=== PATIENT | female | born 1980 | race Caucasian/White ===

== ENCOUNTER → 2018-10-29 | Outpatient (REF) | payer OTHER | LOC: M LAB REF 12:58 | PROVIDERS: ATTEND Nurse Practitioner Women's Health | DX: Z34.83 Encounter for supervision of other normal pregnancy, third trimester (principal); Z3A.00 Weeks of gestation of pregnancy not specified ==

== ENCOUNTER → 2018-12-30 | Outpatient (REF) | payer OTHER ==
[2018-12-30 13:28] LABS: FREE T4 1.02 NG/DL (0.76-1.46); THYROID STIMULATING HORMONE 0.509 uIU/ML (0.358-3.740)
== END ==
LOC: M LAB REF 12:27
PROVIDERS: ATTEND Nurse Practitioner Women's Health
DX: E03.9 Hypothyroidism, unspecified (principal)

== ENCOUNTER → 2020-05-28 | Outpatient (CLI) | payer OTHER ==
--- NOTE | 2020-05-28 16:18 | REP ---
INDICATION: N9.1 EXCESSIVE AND FREQUENT MENSTRUATION. COMPARISON: None. TECHNIQUE: Transabdominal, endovaginal and Doppler ultrasound assessment of the pelvis. FINDINGS: The uterus is retroverted and slightly enlarged measuring 9.6 x 5.0 x 9.7 cm. The endometrium is not thickened for patient age measuring up to 9.7 mm. Right ovary: The right ovary is normal size measuring 2.9 x 2.0 x 3.0 cm. There is a complex right ovarian cyst measuring 2.1 x 2.2 x 1.8 cm. There is vascular flow in the right ovary with the Doppler resistive index in the parenchymal arteries measuring the 0.39. Left ovary: The left ovary is normal size measuring 3.7 x 1.9 x 3.2 cm. There are 3 complex cyst in the left ovary measurin.5 x 1.8 x 1.4 cm. 2.5 x 2.0 x 1.4 cm. 1.8 x 1.3 x 1.5 cm. There is vascular flow in the left ovary with color Doppler assessment. No resistive index is performed. There is a small volume of free fluid in the pelvis. IMPRESSION: There is a single complex cyst in the right ovary. There are 3 complex cysts in the left ovary. There is vascular flow in both ovaries. There is a small volume of free fluid in the pelvis. The uterus is retroverted. <Electronically signed by Orlin Gonzalez > 05/28/20 [id number]
== END ==
LOC: M WHC 12:57
PROVIDERS: ATTEND Obstetrics & Gynecology
DX: N92.1 Excessive and frequent menstruation with irregular cycle (principal); N83.201 Unspecified ovarian cyst, right side; N83.202 Unspecified ovarian cyst, left side

== ENCOUNTER → 2020-08-01 | Outpatient (REF) | payer OTHER ==
[2020-08-01 16:12] LABS: HEMATOCRIT 42.4 % (36.0-47.0); HEMOGLOBIN 14.4 g/dl (12.0-15.5); MEAN CORPUSCULAR HEMOGLOBIN 32.4 pg (27.0-33.0); MEAN CORPUSCULAR VOLUME 95.3 fl (80.0-96.0); PLATELET COUNT, AUTOMATED 209 10^3/uL (150-450); RED BLOOD COUNT 4.45 10^6/uL (4.00-5.40)
[2020-08-01 16:45] LABS: FREE T4 1.05 NG/DL (0.76-1.46)
[2020-08-01 17:26] LABS: HEPATITIS C VIRUS ABY INDEX 0.1 INDEX (<0.8); HIV 1&2 SCREEN CENTAUR NEGATIVE (NEGATIVE)
[2020-08-01 17:48] LABS: CHLAMYDIA DNA AMPLIFICATION NEGATIVE (NEGATIVE); GC DNA AMPLIFICATION NEGATIVE (NEGATIVE)
== END ==
LOC: M PLALAB 12:29
PROVIDERS: ATTEND Advanced Practice Midwife
DX: Z3A.11 11 weeks gestation of pregnancy (principal)

== ENCOUNTER → 2020-09-18 | Outpatient (CLI) | payer OTHER ==
--- NOTE | 2020-09-18 11:54 | REP ---
INDICATION: ANATOMY. COMPARISON: None. TECHNIQUE: Multiple sonographic images of the gravid uterus FINDINGS: There is a single intrauterine gestation. position is variable. The placenta is anterior with grade 0 maturity. There is no previa. The umbilical cord inserts centrally onto the placenta. There is a three-vessel cord. The cord insertion is unremarkable. Cervix measures 4.1 cm. heart rate is 140 beats per minute. Subjectively the amniotic fluid volume is normal. Gestational age by today's study is 19 weeks 3 days with an VAISHALI of 02/09/2021. The LMP is unknown. weight is 310 g which corresponds to 0 lb, 10 oz. This is greater than the 97th percentile for 18 weeks 2 days. The following anatomic structures are identified and are unremarkable: Cranium, cavum septum pellucidum, falx, intracranial ventricles, choroid plexus, cerebellum, cisterna magna, nuchal fold, facial profile, upper lip, cardiac rhythm, four-chamber heart, cardiac right left ventricular outflow tracts, diaphragm, stomach, abdominal wall, right and left kidneys, bladder, spine, right and left upper extremities, right left lower extremities and 3 vessel cord. IMPRESSION: No anomalies are identified. <Electronically signed by Orlin Gonzalez > 09/18/20 [id number]
== END ==
LOC: M WHC 10:25
PROVIDERS: ATTEND Advanced Practice Midwife
DX: O09.522 Supervision of elderly multigravida, second trimester (principal); Z36.89 Encounter for other specified antenatal screening; Z3A.19 19 weeks gestation of pregnancy

== ENCOUNTER → 2020-10-23 | Outpatient (REF) | payer OTHER | LOC: M PLALAB 11:47 | PROVIDERS: ATTEND Obstetrics & Gynecology | DX: Z36.89 Encounter for other specified antenatal screening (principal); Z3A.23 23 weeks gestation of pregnancy; Z53.9 Procedure and treatment not carried out, unspecified reason ==

== ENCOUNTER → 2020-11-19 | Outpatient (REF) | payer OTHER ==
[2020-11-19 10:10] LABS: HEMATOCRIT 39.9 % (36.0-47.0); HEMOGLOBIN 13.3 g/dl (12.0-15.5); MEAN CORPUSCULAR HEMOGLOBIN 33.7 pg (27.0-33.0); MEAN CORPUSCULAR HGB CONC 33.3 g/dl (32.0-36.5); PLATELET COUNT, AUTOMATED 142 10^3/uL (150-450); RED BLOOD COUNT 3.95 10^6/uL (4.00-5.40); WHITE BLOOD COUNT 6.3 10^3/uL (4.0-10.0)
[2020-11-19 10:50] LABS: FREE T4 0.97 NG/DL (0.76-1.46); THYROID STIMULATING HORMONE 2.03 uIU/ML (0.358-3.740)
== END ==
LOC: M PLALAB 08:13
PROVIDERS: ATTEND Obstetrics & Gynecology
DX: Z36.89 Encounter for other specified antenatal screening (principal); Z3A.23 23 weeks gestation of pregnancy

== ENCOUNTER → 2021-01-24 | Outpatient (REF) | payer OTHER | LOC: M SFHCWAGY 10:12 | PROVIDERS: ATTEND Obstetrics & Gynecology | DX: A60.04 Herpesviral vulvovaginitis (principal) ==

== ENCOUNTER 2021-02-10 17:40 | Inpatient (IN) | payer OTHER ==
[~2021-02-10] VITALS: Ht 165.1 cm; Wt 78.2 kg
[2021-02-10] MEDS ORDERED: LEVO50TA5 (18:15)
[2021-02-10] MEDS ORDERED: VALA500T5 (18:15)
[2021-02-10] MEDS ORDERED: LEVO75TA4 (18:15)
[2021-02-10] MEDS ORDERED: PNV-TAB2 PO (18:16)
[2021-02-10] MEDS ORDERED: HOME MED LIST COMPLETE! XX SCH (18:20)
[2021-02-10] MEDS ORDERED: OXYTOCIN DRIP 30 UNITS in IV 1 EA IV SCH (20:15)
[2021-02-10] MEDS ORDERED: LR 1,000 ML IV SCH (20:15)
--- NOTE | 2021-02-10 20:32 | HPEPDOC ---
Obstetrical History & Physical General Date of Admission Feb 10, 2021 at 17:40 History of Present Illness 41yo at 39w0d presents for induction of labor for AMA. Otherwise uncomplica lana course Chief Complaint: Induction of labor Information Provided By: Patient Age: 7 Livin Care Care: Good Care Dating Final EDC: Feb 17, 2021 Final EDC by: LMP EGA at Admission: 39 Past Medical History Past Obstetrical History #1: Date of Delivery: October 14, 2011 Gestation: 39 Type of Delivery: Spontaneous Vaginal Del. Sex of Infant: Male Complications: No Past Obstetrical History #2: Date of Delivery: Sep 18, 2015 Gestation: 40 Type of Delivery: Spontaneous Vaginal Del. Sex of : Female Past Obstetrical History #3: Date of Delivery: Nov 17, 2018 Gestation: 39 Type of Delivery: Spontaneous Vaginal Del. Sex of Infant: Female LAYER OUT History: Ectopic , Abnormal Pap, Human papillomavirus(HPV), Herpes simplex virus(HSV) Past Medical History Medical History Fabiola's thyroiditis Surgical History: Appendectomy, Dilatation and Curettage Family History Significant Family History: No pertinent family hx Social History Marital Status: Family situation: Spouse/partner home Psychosocial History: No pertinent psych hx * Smoker: non-smoker Alcohol: Denies Drugs: denies Allergies Coded Allergies: No Known Allergies (Unverified , 02/10/21) Medications Miscellaneous Medications Levothyroxine Sodium (Levothyroxine Sodium) 50 Mcg Tablet Levothyroxine Sodium (Levothyroxine Sodium) 75 Mcg Tablet ,Calc.40/Iron/Folate 1 (Pnv-Select Tablet) 1 Each Tablet, 1 TAB PO Valacyclovir HCl (Valacyclovir) 500 Mg Tablet Physical Examination Physical Examination GENERAL: Alert and oriented times three. BREAST: . ABDOMEN: Gravid and non-tender to touch. FETUS: Is vertex (VTX) by sterile vaginal examination (SVE), fetus is vertex (VTX) by Fabian. HEART RATE: Regular rate and rhythm. LUNGS: Clear to auscultation (CTA). Laboratory Data [facility] Laboratory Tests 2 02/10/21 18:01: Serology Scanned Report Hepatitis B Testing Pertinent Laboratoy Data Blood Type: O+ RBC Antibody Screen: Negative HIV: Negative Hepatitis B: Negative Hepatitis C: Negative Rapid Plasma Reagin: Nonreactive Rubella: Immune Chlamydia/Gonorrhea: Negative Group B Streptococcus: Negative Glucose Tolerance Test: 87 Anatomy Ultrasound Placenta Location: Anterior Normal Anatomy: Yes Placenta Previa: No Vaginal Examination Dilation: 3 cm Effacement: 50% Station: -2 Cervical Consistency: Medium Cervical Position: Middle Presentation: Cephalic presentation Assessment Variability: Moderate Accelerations: Positive Decelerations: None Tocometer Contractions: No Assessment/Plan Assessment 41-year-old at 39 weeks for induction labor for advanced maternal age Reassuring status Plan Admit and orient. 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 Diet: Regular. Group B Streptococcus (GBS) [negative]. Labs and intravenous (IV) per unit protocol. Counseled on Pitocin and induction of labor (IOL). Anticipate [normal spontaneous delivery ()]. C-S as appropriate. Patient's been thoroughly counseled regards induction labor. Discussed medications also procedures before. Plan to proceed with Pitocin augmentation. RALEIGH GLOVER MD. Feb 10, 2021 20:32
[2021-02-11] VITALS (27 sets, daily range): BP systolic 93–134; BP diastolic 51–83
[2021-02-11 00:08] LABS: HEMATOCRIT 38.7 % (36.0-47.0); HEMOGLOBIN 13.3 g/dl (12.0-15.5); MEAN CORPUSCULAR HEMOGLOBIN 34.2 pg (27.0-33.0); MEAN CORPUSCULAR HGB CONC 34.4 g/dl (32.0-36.5); MEAN CORPUSCULAR VOLUME 99.5 fl (80.0-96.0); PLATELET COUNT, AUTOMATED 134 10^3/uL (150-450); RED BLOOD COUNT 3.89 10^6/uL (4.00-5.40); WHITE BLOOD COUNT 5.8 10^3/uL (4.0-10.0)
[2021-02-11] MEDS ORDERED: FENTANYL 2MCG/ML ROPIVACAINE 0.2% IN 0.9% NACL 100ML IVBAG As Ordered ONE (02:41)
[2021-02-11] MEDS ORDERED: REFRIGERATOR IV KEYS XX PRN (03:50)
[2021-02-11] MEDS ORDERED: FENTANYL/ROPIVACAINE/NACL BAG 100 ML EPIDURAL SCH (03:50)
[2021-02-11] MEDS ORDERED: ePHEDrine SULFATE 25 MG/5 ML(5MG/ML) SYRINGE IV PRN (03:50)
[2021-02-11] MEDS ORDERED: NALOXONE INJ 0.4MG/1ML VIAL (J2310 PER 1MG) IV PRN (03:50)
[2021-02-11] MEDS ORDERED: EPIDURAL/PCA KEYS XX PRN (03:50)
[2021-02-11] MEDS ORDERED: ONDANSETRON 4MG/2ML VIAL IV PRN (03:50)
[2021-02-11] MEDS ORDERED: diphenhydrAMINE 50MG/ML VIAL (J1200) IV PRN (03:50)
[2021-02-11] MEDS ORDERED: LACTATED RINGER'S 1000 ML IV PRN (03:50)
[2021-02-11] MEDS ORDERED: EPIDURAL COMMENT XX SCH (03:50)
--- NOTE | 2021-02-11 04:02 | IPNPDOC ---
Text Note Date of Service The patient was seen on 02/11/21. NOTE AROM clear. cx /-2. requesting epidural VS,Juan, I+O VS, Juan, I+O Laboratory Tests 02/10/21 18:32 RALEIGH GLOVER MD. Feb 11, 2021 04:02
[2021-02-11] MEDS ORDERED: DOCUSATE SODIUM 100MG CAPSULE PO PRN (06:20)
[2021-02-11] MEDS ORDERED: ACETAMINOPHEN TAB 650MG DOSE (2X325MG) PO PRN (06:20)
[2021-02-11] MEDS ORDERED: IBUPROFEN 600MG TAB PO PRN (06:20)
[2021-02-11] MEDS ORDERED: DIBUCAINE 1% OINTMENT 30GM TOP PRN (06:20)
[2021-02-11] MEDS ORDERED: IBUPROFEN 800 MG TAB PO PRN (06:20)
[2021-02-11] MEDS ORDERED: RHOGAM 300 MCG (1500 IU) INJ (J2790) IM SCH (06:20)
[2021-02-11] MEDS ORDERED: MOM 30ML SUSPENSION UDC PO PRN (06:20)
[2021-02-11] MEDS ORDERED: MEASLES,MUMPS,RUBELLA VACCINE INJ (MMR-II) (90707) SC SCH (06:20)
[2021-02-11] MEDS ORDERED: ACETAMINOPHEN 500 MG TAB PO PRN (06:20)
[2021-02-11] MEDS ORDERED: METHYLERGONOVINE MALEATE 0.2 MG TAB PO PRN (06:20)
[2021-02-11] MEDS ORDERED: OXYTOCIN DRIP 30 UNITS in IV 1 EA IV SCH (06:20)
--- NOTE | 2021-02-11 06:50 | DNPDOC ---
[facility] Delivery Note Delivery Note DATE OF DELIVERY: February 11 2021 TIME OF : 0446 GENDER: Female APGARS: 9 and 9. WEIGHT: 3930 grams or 8 pounds 11ounces. LACERATIONS: 1MLL ANESTHESIA: epidural ESTIMATED BLOOD LOSS: 300ml COUNTS: 5 laparotomy sponges accounted for prior to after delivery. 1 sharps removed from delivery field. DELIVERY NOTE: On 05/11/2020 at 1240, Mrs. Byrd a 41-year-old 6 now para 4, had a spontaneous vaginal delivery of viable male infant, Apgars, 9 and 9 and weight 3930 g or 8 lbs. 11 oz. Head was delivered occiput anterior (OA), followed by delivery of the shoulders and corpus. Infant was handed to mom with a good cry. Cord was clamped times two and was cut by support person under my direction. Placenta was then drained and delivered grossly intact. A premixed bag of 500 mL of normal saline with 30 units of Pitocin was then bolused along with uterine massage until the uterus was firm. On inspection there was a 1MLL that was repaired with 3-0 Vicryl. On reinspection, cervix, vagina, perineum was grossly intact and hemostatic. Mom and baby in recovery on stable condition. Couples decided to name in daughter Marie RALEIGH Martinez MD. Feb 11, 2021 06:50
[2021-02-11] MEDS: PRENATAL VITAMINS CHEWABLE TABLET PO SCH (09:00)
[2021-02-12 06:00] VITALS: BP 102/65
[2021-02-12] MEDS: PRENATAL VITAMINS CHEWABLE TABLET PO SCH (08:40)
[2021-02-12] MEDS ORDERED: IBUP80TA PO (10:30)
[2021-02-12] MEDS ORDERED: ACET-683 PO (10:30)
== END 2021-02-12 12:55 | disposition home or self-care (01) | DRG 807 ==
LOC: M LDI 17:40 → M OBS 02-11 12:04
PROVIDERS: ADMIT Obstetrics & Gynecology; ATTEND Obstetrics & Gynecology
PROC: 3E033VJ Introduction of Other Hormone into Peripheral Vein, Percutaneous Approach (ICD-10-PCS; 2021-02-10)
PROC: 10E0XZZ Delivery of Products of Conception, External Approach (ICD-10-PCS; principal; 2021-02-11)
PROC: 10907ZC Drainage of Amniotic Fluid, Therapeutic from Products of Conception, Via Natural or Artificial Opening (ICD-10-PCS; 2021-02-11)
PROC: 0HQ9XZZ Repair Perineum Skin, External Approach (ICD-10-PCS; 2021-02-11)
DX: O99.283 Endocrine, nutritional and metabolic diseases complicating pregnancy, third trimester (principal); Z37.0 Single live birth; E06.3 Autoimmune thyroiditis; Z3A.39 39 weeks gestation of pregnancy; O70.0 First degree perineal laceration during delivery

== ENCOUNTER → 2021-08-20 | Outpatient (REF) | payer OTHER ==
[~2021-08-20] MED LIST: ACET-683 PO; IBUP80TA PO; LEVO50TA5; LEVO75TA4; PNV-TAB2 PO; VALA500T5
== END ==
LOC: M SFHCWAGY 12:56
PROVIDERS: ATTEND Obstetrics & Gynecology
DX: Z12.4 Encounter for screening for malignant neoplasm of cervix (principal); Z77.9 Other contact with and (suspected) exposures hazardous to health
CPT/HCPCS: 87624; G0123

== ENCOUNTER → 2022-05-07 | Outpatient (REF) | payer OTHER | LOC: M SMT 17:03 → M SFHCWAGY 17:03 | PROVIDERS: ATTEND Obstetrics & Gynecology | DX: N92.1 Excessive and frequent menstruation with irregular cycle (principal) ==